=== PATIENT | male | born 1980 | race Caucasian/White ===

== ENCOUNTER 2021-05-13 04:35 | Outpatient (CLI) | payer MEDICARE ==
[~2021-05-13 04:35] MED LIST: ARIP15TA27 PO; BENZ1TAB10 PO; MULT-1238 PO; OMEG1CAP12 PO
[2021-05-13 05:46] VITALS: BP 110/68
[2021-05-13 05:48] VITALS: BP 110/68
[2021-05-13 05:57] LABS: GLUCOMETER DEV NAME(LOC) POC.BV
== END 2021-05-13 06:05 | disposition home or self-care (01) ==
LOC: CSU 04:35
PROVIDERS: ATTEND Psychiatry & Neurology Psychiatry
DX: F39 Unspecified mood [affective] disorder (principal); F20.9 Schizophrenia, unspecified; F17.200 Nicotine dependence, unspecified, uncomplicated; Z20.822 Contact with and (suspected) exposure to COVID-19
CPT/HCPCS: 90792